=== PATIENT | female | born 1985 | race Caucasian/White ===

== ENCOUNTER 2021-12-10 22:46 | Emergency (ER) | payer MEDICAID, SELFPAY ==
[2021-12-10 22:47] VITALS: BP 120/80; PULSE 73; RESP 18; TEMP 36.1; O2SAT 95; BMI 18.9
--- NOTE | 2021-12-10 23:02 | EDS_ITS ---
HPI History of Present Illness Chief Complaint: Cold Sx Narrative Narrative: Patient is a 36-year-old female with no significant past medical history who states she does not smoke or vape. She states she has multiple children at home who have had congestion cough and drainage. She states she developed similar symptoms about 5 days ago. She states that she had a fever when this initially began and it resolved and her symptoms began to get better. However over the last 2 days she has had return of the fever as well as congestion and cough. She now has pain in the right lower chest and has concerned she may have developed pneumonia with return of symptoms and therefore comes in for evaluation. [facility] Medical History (Updated 12/10/21 @ 23:[address] Vamsi Bill, DO) Adrenal insufficiency Medical History no medical history no medical history Home Medications clindamycin phosphate 30 gm TP BID #1 tube 09/23/17 [Rx Last Taken Unknown] azelastine 2 spray INTRANASAL BID #30 ml 12/10/21 [Rx Last Taken Unknown] prednisone 40 mg PO DAILY 7 Days #14 tab 12/10/21 [Rx Last Taken Unknown] promethazine-codeine 5 ml PO Q6H PRN 7 Days #140 ml 12/10/21 [Rx Last Taken Unknown] Allergy/AdvReac Type Severity Reaction Status Date / Time No Known Allergies Allergy Verified 12/10/21 22:47 Social History Smoking Status: Never smoker [facility] ED Constitutional Constitutional ED: Reports fever(s); Denies chills ENT ENT ED: Reports ear pain, rhinorrhea and sore throat Cardiovascular Cardiovascular: Denies chest pain Respiratory/Chest Respiratory/Chest: Reports cough and dyspnea Gastrointestinal Gastrointestinal: Denies abdominal pain, diarrhea, nausea or vomiting Genitourinary Genitourinary ED: Denies dysuria Musculoskeletal Musculoskeletal: Reports myalgias Integumentary Denies rash Neurologic Neurologic: Denies headache(s) Hematologic/Lymphatic Hematologic/Lymphatic: Denies easy bleeding or easy bruising EXAM Physical Exam Const Vital Signs: 12/10/21 22:47 12/10/21 23:02 12/10/21 23:06 Temperature 97.0 F L Temperature Source Temporal Pulse Rate 73 Respiratory Rate 18 Respiratory Effort Normal Respiratory Pattern Normal Blood Pressure 120/80 Blood Pressure Mean 93 Pulse Ox 95 Oxygen Delivery Method Room Air Room Air Positive well nourished and well developed General Appearance ED: well developed HEENT Reports moist mucous membranes HEENT Narrative: Bilateral TMs are retracted right greater than left without secondary changes to suggest infection. Nasal mucosa is hyperemic and boggy with enlarged inferior nasal turbinates. Cobblestoning the posterior pharynx consistent with sinus drainage but no airway edema or compromise. Eyes PERRL and EOMs intact bilaterally Neck supple and no JVD Neck Narrative: Positive anterior cervical of adenopathy noted Chest Wall Chest Narrative: There is reproducible right anterior lateral chest wall pain along rib regions 8-12 without bony deformity or crepitance Resp normal respiratory effort and clear to auscultation bilaterally Resp Narrative: Breath sounds are slight diminished throughout but overall clear to auscultation with no signs of respiratory distress Cardio regular rate and regular rhythm Rate: other Other Details: Radial pulses are +2-4 bilaterally are equal and symmetric GI normal to inspection, nondistended, normoactive bowel sounds, non-tender, non- distended and no masses Auscultation: normoactive bowel sounds Palpation: soft Extremity normal to inspection Extremity Narrative: No asymmetric edema or pitting edema negative Homans' sign bilaterally Neuro oriented x3 and CN's II-XII intact bilaterally Sensorium / Orientation: alert Motor Exam: strength 5/5 throughout Psych mental status grossly normal Skin no rashes or lesions noted MDM MDM MDM Narrative Medical decision making narrative: Patient presented to the ER afebrile but did report taking ibuprofen prior to arrival. She was not any type of respiratory distress and satting in the mid 90s on room air. Her constellation of symptoms is consistent with a recurrent viral infection but as she reported initial fever that had resolved and now returned there is concern she has developed pneumonia. Therefore I did elect to perform a chest x-ray. I did not feel need for viral swabs because as patient has stable vitals and is not hypoxic they would not alt er treatment. Chest x-ray was obtained which revealed no obvious pathology. On reevaluation patient is resting comfortably and remains in no acute respiratory distress. Therefore at this time she will be placed on symptomatic medications for her recurrent viral URI and is otherwise safe for discharge. Radiography Diagnostic Testing: Clinical Impression(s) from Imaging Studies Chest X-Ray 12/10/21 23:10 IMPRESSION: No acute cardiopulmonary disease. 14 mm nodule in the left lower lung field. Can be further characterized with CT chest. Electronically Signed: Mino Khoury MD at 23:36 EDT , Chest x-ray is interpreted by the emergency medicine physician reveals no acute infiltrate pneumothorax or pleural effusion Discharge Plan Triage Chief Complaint: Cold Sx ED Provider: Vamsi Bill Dx/Rx/DC Orders Clinical Impression: Viral upper respiratory tract infection Instructions: ED URI, Viral, No Abx (Adult) Prescriptions: New prednisone 20 mg tablet 40 mg PO DAILY 7 Days Qty: 14 RF: 0 azelastine 137 mcg (0.1 %) aerosol,spray 2 spray intranasal BID Qty: 30 RF: 0 promethazine-codeine 6.25-10 mg/5 mL syrup 5 ml PO Q6H PRN (Reason: cough) 7 Days Qty: 140 RF: 0 No Action clindamycin phosphate 30 GM gel 30 gm TP BID Qty: 1 RF: 0 Primary Care Provider: Mauricio Medina [employer] SUPER[employer]OR Referrals: Yolanda Soto MD [STAFF PHYSICIAN] - 1 Week if not improving Activity Restrictions/Additional Instructions: Please talk to your family doctor about obtaining a outpatient chest CT in the next 3 to 6 months to reevaluate the small lesion found in the left lung today Disposition Disposition: Home, Self Care
--- NOTE | 2021-12-10 23:10 | RAD_ITS ---
INDICATION: cough EXAMINATION/TECHNIQUE: X-RAY - XR Chest 2 Views COMPARISON: None. FINDINGS: LINES/DEVICES: None. LUNGS: 14 mm nodule overlying the left lower lung field. No consolidation, edema or effusion. No pneumothorax. Mild biapical pleural/parenchymal scarring. MEDIASTINUM AND CARDIOVASCULAR STRUCTURES: Cardiac silhouette not enlarged. Central airways and mediastinal contour are unremarkable. BONES AND SOFT TISSUES: Unremarkable. RAD/Chest PA and Lateral IMPRESSION: No acute cardiopulmonary disease. 14 mm nodule in the left lower lung field. Can be further characterized with CT chest. Electronically Signed: Mino Khoury MD at 23:36 EDT ,
[2021-12-11 00:23] VITALS: BP 124/78; PULSE 78; RESP 17; TEMP 36.7
== END 2021-12-11 00:24 | disposition home or self-care (01) ==
PROVIDERS: Emergency Provider Emergency Medicine; PCP Nurse Practitioner Family; Visit Provider Emergency Medicine
DX: J06.9 Acute upper respiratory infection, unspecified (principal); R91.1 Solitary pulmonary nodule
CPT/HCPCS: 71046; 99283

== ENCOUNTER 2024-04-14 16:50 | Emergency (ER) | payer MEDICAID, SELFPAY ==
[2024-04-14 16:51] VITALS: BP 144/93; PULSE 65; RESP 18; TEMP 36.1; O2SAT 100
--- NOTE | 2024-04-14 18:08 | CT_ITS ---
STUDY: CT BRAIN WITHOUT CONTRAST REASON FOR EXAM: Female, 39 years old. blurred vision RADIATION DOSAGE (If Supplied By Facility): CTDIvol = ( 44.99 ) mGy, DLP = ( 745.49 ) mGycm TECHNIQUE: Transaxial CT imaging of the brain was performed without administration of intravenous contrast material. Individualized dose optimization techniques were used for this CT. COMPARISON: No relevant priors. FINDINGS: Normal soft tissue structures. Normal calvarium. Normal size ventricles and extra-axial spaces for the patient''s age. Normal white matter tracts of the cerebral hemispheres. Normal basal ganglia and thalami. Normal brainstem. Normal cerebellum. Partial empty sella deformity of uncertain significance. There is no intracranial hemorrhage. There are no findings of an acute ischemic infarction. Moderate mucosal thickening of the right maxillary sinus. CT/Brain/Head without Contrast IMPRESSION: Mild partial empty sella deformity of uncertain significance.. Otherwise no significant abnormality If concern for acute infarct MRI recommended Electronically Signed: Kev Dong MD at 19:19 EDT ,
--- NOTE | 2024-04-14 18:13 | EDS_ITS ---
HPI History of Present Illness Chief Complaint: Dizziness Narrative Narrative: 39-year-old female past medical history of previous headaches that improved when she started jogging, presents with dizziness and change in her vision that happened at around 3:15 in the afternoon, approximately 3 hours ago. She relates history that while she wears contact lenses, she was trying to focus and seeing her child. There were 2 spots that were blurry out of both eyes. She would look and she could not see through her vision and she stated that half of her child was missing. She may have had a slight headache at that time. She became dizzy, but not vertiginous. She states she felt a little off balance. She thought maybe there was something on her contact lenses but that was not the case. She laid down for a nap. Her vision seemed to improve within 40 minutes. [facility] Medical History Adrenal insufficiency Home Medications ?Medication ?Instructions ?Recorded ?Last Taken ?Type clindamycin phosphate 1 % topical 30 gm TP BID ##1 09/23/17 Unknown Rx gel azelastine 137 mcg (0.1 %) nasal 2 spray intranasal BID #30 mL 12/10/21 Unknown Rx spray prednisone 20 mg tablet 40 mg (2 x 20 mg) PO DAILY 7 days 12/10/21 Unknown Rx #14 tabs promethazine 6.25 mg-codeine 10 5 ml PO Q6H PRN cough 7 days #140 12/10/21 Unknown Rx mg/5 mL syrup mL hydrocodone-homatropine 5 mg-1.5 5 ml PO Q6H PRN cough 3 days #60 mL 12/11/21 Unknown Rx mg/5 mL (5 mL) oral syrup (Hycodan) promethazine 6.25 mg-codeine 10 5 ml PO Q6H PRN cough 7 days #140 12/11/21 Unknown Rx mg/5 mL syrup mL Allergy/AdvReac Type Severity Reaction Status Date / Time No Known Allergies Allergy Verified 04/14/24 16:51 Social History Smoking Status: Never smoker ROS ROS ED ROS Narrative Constitutional: No fever, no chills. HEENT: No sore throat. No neck pain. No loss of vision. No rhinorrhea. Positive visual disturbance out of both eyes. It was like she could not see through to equal spots out of both eyes and only saw half of her child. Cardiovascular: No chest pain. No palpitations. No pedal edema. Respiratory: No cough, no shortness of breath. Abdominal: No abdominal pain. No nausea. No vomiting. Genitourinary: No dysuria. No hematuria. Musculoskeletal: No myalgias. No arthralgias. Neurologic: Positive headaches. No dizziness. No lightheadedness. Skin: No rash. No change in color. Psychiatric: No depression. No anxiety. EXAM Physical Exam Narrative Exam Narrative: Afebrile. Vital signs noted. HEENT: Normocephalic. Atraumatic. PERRL, EOMI. no lid lag. Neck soft and supple. No point tenderness or step off. Cardiovascular: Regular rate and rhythm. No murmurs, rubs, or gallops appreciated. Respiratory: No tachypnea. Lungs clear to auscultation bilaterally. Gastrointestinal: Abdomen soft, nontender, with normoactive bowel sounds. No rebound or guarding. Neurological: Awake. Alert. Nonfocal, nonlateralizing. NIH stroke scale 0. Skin: No rash. Normal color. No pallor. Musculoskeletal: No pedal edema. Full range of motion extremities. Const Vital Signs: 04/14/24 16:51 04/14/24 19:00 Temperature 97 F L 98.8 F Temperature Source Temporal Oral Pulse Rate 65 78 Respiratory Rate 18 16 Blood Pressure 144/93 H 112/75 Blood Pressure Mean 110 87 Pulse Ox 100 98 Oxygen Delivery Method Room Air Room Air [facility] Narrative Medical decision making narrative: Differential diagnosis includes ocular migraine versus atypical migraine headache, I have low suspicion for TIA or stroke. I also have low suspicion for any retinal pathology. She could have an electrolyte disturbance as well causing her headache as a trigger. I reviewed her laboratory work and she has normal white count of 5.6 with hemoglobin normal at 12.8, hematocrit 39.8, platelet count normal at 313. Electrolyte panel is grossly unremarkable. LFTs are normal. CT of the brain was obtained and radiology report reviewed. It does comment on empty sella deformity of unknown significance. I was able to discuss patient with Dr. Oneill with ophthalmology. It was felt that this is typical for ocular migraines even given the timing. He will follow-up with her early next week. I feel she can be discharged to follow-up. Return instructions to the emergency department were reviewed. Disposition is discharged home in stable condition. History & Record Review Discussion w/independent historian: Patient and Family Lab Data Attestation: I reviewed the patient's lab results. Labs: Laboratory Results - last 24 hr 04/14/24 18:25 WBC 5.6 RBC 4.29 Hgb 12.8 Hct 39.8 MCV 92.8 MCH 29.8 MCHC 32.2 RDW Std Deviation 48.3 H RDW Coeff of Lori 14.2 Plt Count 313 MPV 10.0 Immature Gran % (Auto) 0.200 Neut % (Auto) 58.2 Lymph % (Auto) 27.5 Freestone % (Auto) 10.2 H Eos % (Auto) 3.0 Baso % (Auto) 0.9 Absolute Neuts (auto) 3.3 Absolute Lymphs (auto) 1.54 Nucleated RBC % 0 Sodium 138 Potassium 4.2 Chloride 106 Carbon Dioxide 27.0 Anion Gap 5 BUN 12 Creatinine 0.84 Estim Creat Clear Calc 71.38 Est GFR (MDRD) Af Amer 96 Est GFR (MDRD) Non-Af 79 BUN/Creatinine Ratio 14.2 Glucose 114 H Calcium 8.9 Total Bilirubin 0.40 AST 22 ALT 21 Alkaline Phosphatase 57 Total Protein 7.6 Albumin 4.0 Globulin 3.6 Albumin/Globulin Ratio 1.1 Radiography Diagnostic Testing: Clinical Impression(s) from Imaging Studies Brain CT 04/14/24 18:08 IMPRESSION: Mild partial empty sella deformity of uncertain significance.. Otherwise no significant abnormality If concern for acute infarct MRI recommended Electronically Signed: Kev Dong MD at 19:19 EDT , Discharge Plan Triage Chief Complaint: Dizziness ED Provider: Ji Mitchell Dx/Rx/DC Orders Clinical Impression: Ocular migraine, Binocular visual disturbance Instructions: Understanding Vision Problems, ED, Migraine (Classical) Prescriptions: No Action clindamycin phosphate 30 GM gel 30 gm TP BID Qty: 1 0RF prednisone 20 mg tablet 40 mg PO DAILY 7 Days Qty: 14 0RF azelastine 137 mcg (0.1 %) aerosol,spray 2 spray intranasal BID Qty: 30 0RF Rx Instructions: administer into each nostril promethazine-codeine 6.25-10 mg/5 mL syrup 5 ml PO Q6H PRN (Reason: cough) 7 Days Qty: 140 0RF hydrocodone-homatropine [Hycodan] 5-1.5 mg/5 mL (5 mL) syrup 5 ml PO Q6H PRN (Reason: cough) 3 Days Qty: 60 0RF promethazine-codeine 6.25-10 mg/5 mL syrup 5 ml PO Q6H PRN (Reason: cough) 7 Days Qty: 140 0RF Primary Care Provider: Mauricio Medina NP Referrals: Vidal Pryor MD [Med Staff - Active Staff] - 3-5 Days Mauricio Medina NP, [employer]ESS[employer] [Primary Care Provider] - Activity Restrictions/Additional Instructions: Return with increasing visual disturbance, headache, fever, new or worsening symptoms. Follow-up with ophthalmology. They will contact you early next week, or you can call the office. Print Language: Malian Disposition Disposition: Home, Self Care
[2024-04-14 18:45] LABS: Absolute Lymphocyte Count 1.54 X10^3/uL (0.83-4.51); Absolute Neutrophil Count 3.3 X10^3/uL (2.0-7.7); Basophil# 0.05 X10^3/uL; Basophil% 0.9 % (0-1); Eosinophil# 0.17 X10^3/uL; Hematocrit 39.8 % (37-47); Hemoglobin 12.8 g/dL (12.0-15.0); Lymphocyte # 1.54 X10^3/ul (0.83-4.51); Lymphocyte % 27.5 % (19-41); Mean Corp Hgb Conc 32.2 g/dL (32-36); Mean Corpuscular Hgb 29.8 pg (27.0-32.0); Mean Corpuscular Volume 92.8 fL (81-99); Monocyte# 0.57 X10^3/uL; Monocyte% 10.2 % (0-10); NRBC Flagged by Analyzer 0 % (0-5); Neutrophil # 3.26 X10^3/uL (2.7-7.7); Neutrophil % 58.2 % (47-70); Platelet Count 313 K/mm3 (150-450); RBC Distribution Width CV 14.2 % (11.6-14.6); RBC Distribution Width SD 48.3 fl (35.1-43.9); Red Blood Count 4.29 M/mm3 (4.2-5.4); White Blood Count 5.6 K/mm3 (4.4-11.0)
[2024-04-14 18:54] LABS: ALB/GLOB Ratio 1.1 RATIO (0.9-2.4); AST(SGOT) 22 U/L (15-37); Alanine Aminotransfer ALT/SGPT 21 U/L (13-56); Alkaline Phosphatase 57 U/L (45-117); Anion Gap 5 (5-15); BUN 12 mg/dL (7-18); BUN/Creat Ratio 14.2 RATIO (10-20); Calcium,Total 8.9 mg/dL (8.5-10.1); Chloride 106 mmol/L (98-107); Creatinine, Serum 0.84 mg/dL (0.55-1.02); EST Glomerular Filtration Rate 79 mL/min (>60); Est Glom Filt Rate - Afr Amer 96 mL/min (>60); Estimated Creatinine Clearance 71.38 ml/min; Globulin 3.6 g/dL (2.2-4.2); Glucose 114 mg/dL (74-106); Potassium 4.2 mmol/L (3.5-5.1); Protein, Total 7.6 g/dL (6.4-8.2); Sodium Level 138 mmol/L (136-145)
[2024-04-14 19:00] VITALS: BP 112/75; PULSE 78; RESP 16; TEMP 37.1; O2SAT 98
[2024-04-14 20:36] VITALS: BP 111/77; PULSE 68; RESP 16; TEMP 36.7; O2SAT 98
== END 2024-04-14 20:41 | disposition home or self-care (01) ==
PROVIDERS: Emergency Provider Emergency Medicine; PCP Nurse Practitioner Family; Visit Provider Emergency Medicine
DX: G43.B0 Ophthalmoplegic migraine, not intractable (principal); H53.8 Other visual disturbances
CPT/HCPCS: 70450; 80053; 85025; 99283; A4216